=== PATIENT | male | born 1940 | race Two or more races ===

== ENCOUNTER 2016-12-26 10:13 | Inpatient (IN) | payer OTHER, MEDICAID ==
[~2016-12-26] VITALS: Ht 170.2 cm; Wt 84.1 kg
--- NOTE | 2016-12-26 10:13 | NUR ---
c/o Right upper extremities and right hip pain S/P GLF yesterday
--- NOTE | 2016-12-26 11:35 | NUR ---
RAC #20 IV ACCESS. BLOOD SAMPLE COLLECTED SENT TO LAB
--- NOTE | 2016-12-26 11:40 | NUR ---
EKG IN PROGRESS
[2016-12-26 11:47] LABS: BASOPHILS % (AUTO) 0.5 % (0.0-2.0); EOSINOPHILS # (AUTO) 0.1 /CMM (0.0-0.7); EOSINOPHILS % (AUTO) 0.7 % (0.0-6.0); HEMATOCRIT 39 % (39-51); HEMOGLOBIN 12.8 g/dL (13.5-17.5); LYMPHOCYTES # (AUTO) 1.5 /CMM (0.8-4.8); LYMPHOCYTES % (AUTO) 15.4 % (20.0-44.0); MEAN CORPUSCULAR HEMOGLOBIN 30 PG (26.0-33.0); MEAN CORPUSCULAR HGB CONC 33 g/dl (31.0-36.0); MEAN CORPUSCULAR VOLUME 91 fL (80-96); MONOCYTES # (AUTO) 0.8 /CMM (0.1-1.30); MONOCYTES % (AUTO) 8.4 % (2.0-12.0); NEUTROPHILS # (AUTO) 7.4 /CMM (1.8-8.9); PLATELET COUNT (AUTO) 168 /CMM (150-450); RED BLOOD CELL COUNT(AUTO) 4.26 MIL/uL (4.5-6.0); WHITE BLOOD COUNT (AUTO) 9.8 K/uL (4.3-11.0)
[2016-12-26 11:57] LABS: CALCIUM, SERUM 8.4 mg/dL (8.5-10.1); CARBON DIOXIDE 25 mmol/L (21-32); CHLORIDE 104 mmol/L (98-107); CREATININE 1.2 mg/dL (0.6-1.3); GLUCOSE 145 mg/dL (74-106); POTASSIUM 4.6 mmol/L (3.5-5.1); SODIUM SERUM 136 mmol/L (136-145); UREA NITROGEN, BLOOD 34 mg/dL (7-18)
--- NOTE | 2016-12-26 11:59 | NUR ---
PAGED ORTHO -- DENTISTRY TEACHER IS MONIQUE CORNELL
--- NOTE | 2016-12-26 12:00 | NUR ---
GAVE REPORT TO [facility] ROOM [address] [employer] [address]URE[address] BLANCO
[2016-12-26 12:01] LABS: INR 0.92 (0.87-1.13); PROTHROMBIN TIME 9.6 SECS (9.5-12.7)
[2016-12-26] MEDS ORDERED: ACAR25TA2 PO (12:57)
[2016-12-26] MEDS ORDERED: CHOL4PAC2 PO (12:57)
[2016-12-26] MEDS ORDERED: METF500T4 PO (12:57)
[2016-12-26] MEDS ORDERED: EZET10TA PO (12:57)
[2016-12-26] MEDS ORDERED: PIOG30TA2 PO (12:57)
[2016-12-26] MEDS ORDERED: AMLO5TAB2 PO (12:57)
[2016-12-26] MEDS ORDERED: EMPA25TA PO (12:57)
[2016-12-26] MEDS ORDERED: HYDR25TA4 PO (12:57)
[2016-12-26] MEDS ORDERED: ATOR40TA PO (12:57)
[2016-12-26] MEDS ORDERED: FOSI20TA3 PO (12:57)
[2016-12-26] MEDS ORDERED: ACET1TAB12 PO (12:57)
[2016-12-26] MEDS ORDERED: CARV12.52 PO (12:57)
[2016-12-26] MEDS ORDERED: GLIM2TAB2 PO (12:57)
[2016-12-26] MEDS ORDERED: MELO-264 PO (12:57)
--- NOTE | 2016-12-26 13:30 | NUR ---
MS/inspecting machine adjuster New admission from emergency room with right hip fracture. Patient fully admitted, no open wounds seen. Dr Vera called for orders.
--- NOTE | 2016-12-26 14:00 | NUR ---
MS/RN S/B Dr Vera Seen by Dr Vera - orders carried out.
[2016-12-26 16:00] VITALS: BP 149/77
[2016-12-26] MEDS ORDERED: ACETAMINOPHEN W/ CODEINE#3 1 EA TABLET PO PRN (16:30)
[2016-12-26] MEDS ORDERED: ACETAMINOPHEN ES 500 MG TABLET PO PRN (16:30)
[2016-12-26] MEDS ORDERED: ZOLPIDEM TARTRATE 5 MG TABLET PO PRN (16:30)
--- NOTE | 2016-12-26 16:30 | NUR ---
MS/rn private duty Per ortho - patient does not require any surgery to either hip or wrist. - toe touch weight bearing only on left leg - no abduction of left hip - new splint to left wrist (thumb spicker) - follow up with Dr Collier in one week
[2016-12-26] MEDS ORDERED: FOSINOPRIL 20 MG PO SCH (17:30)
[2016-12-26] MEDS ORDERED: JARDIANCE 25 MG PO SCH (17:30)
--- NOTE | 2016-12-26 17:30 | NUR ---
MS/RN Blood sugar Blood sugar at 5p - 131, patient taking oral medications only, no insulin.
[2016-12-26] MEDS: EZETIMIBE 10 MG TABLET PO SCH (18:00)
[2016-12-26] MEDS: HYDROCHLOROTHIAZIDE 25 MG TABLET PO SCH (18:00)
[2016-12-26] MEDS: METFORMIN 500 MG TABLET PO SCH (18:00)
[2016-12-26] MEDS: CARVEDILOL 12.5 MG TABLET PO SCH (18:01)
[2016-12-26] MEDS: AMLODIPINE BESYLATE 5 MG TABLET PO SCH (18:01)
--- NOTE | 2016-12-26 18:44 | NUR ---
MS/RN End note Sat up in bed comfortably, denies any pain. Family at bedside and updated as to plan of care. Will continue to monitor and endorse to security shift manager.
--- NOTE | 2016-12-26 19:30 | NUR ---
RN NOTES RECEIVED PATIENT SITTING UP IN BED. AO X 3, ABLE TO MAKE NEEDS KNOWN. NO ACUTE DISTRESS NOTED. DENIES ANY PAIN AT THIS TIME. IV SITE PATENT, INTACT; FLUSHED. SAFETY REMINDERS GIVEN. ON LOW BED WITH BILATERAL UPPER SIDE RAILS UP. CALL LIGHT WITHIN EASY REACH. WILL CONTINUE TO MONITOR.
[2016-12-26 20:00] VITALS: BP 112/57
[2016-12-26] MEDS ORDERED: CHOLESTYRAMINE/ASPARTAME 4 G/PKT PACKET PO SCH (22:00)
[2016-12-26] MEDS ORDERED: ATORVASTATIN 40 MG TABLET PO SCH (22:00)
--- NOTE | 2016-12-27 06:12 | NUR ---
RN NOTES PATIENT ASLEEP, EASILY AROUSABLE. RESPIRATIONS EVEN. NO SIGNS OF PAIN NOTED. DUE MEDS GIVEN WITH NO ASE NOTED. NEEDS ATTENDED. SAFETY PRECAUTIONS AND COMFORT MEASURES IN PLACE. WILL GIVE REPORT TO DAY SHIFT FOR CONTINUITY OF CARE.
--- NOTE | 2016-12-27 07:30 | NUR ---
RN MS NOTES PT IN BED, AWAKE, ALERT AND ORIENTED, DENIES PAIN, NOT IN DISTRESS, CALL LIGHT WITHIN REACH, ASSISTED WITH ADL'S, NEEDS ATTENDED.
[2016-12-27 08:00] VITALS: BP 113/66
[2016-12-27] MEDS ORDERED: MELOXICAM 7.5 MG TABLET PO SCH (09:00)
[2016-12-27] MEDS: HYDROCHLOROTHIAZIDE 25 MG TABLET PO SCH (09:00)
[2016-12-27] MEDS ORDERED: PIOGLITAZONE HCL 15 MG TABLET PO SCH (09:00)
[2016-12-27] MEDS ORDERED: GLIMEPIRIDE 1 MG TABLET PO SCH (09:00)
[2016-12-27] MEDS: AMLODIPINE BESYLATE 5 MG TABLET PO SCH (09:00)
[2016-12-27] MEDS: EZETIMIBE 10 MG TABLET PO SCH (09:10)
[2016-12-27] MEDS: METFORMIN 500 MG TABLET PO SCH (09:10)
[2016-12-27 09:12] VITALS: BP 113/66
[2016-12-27] MEDS: CARVEDILOL 12.5 MG TABLET PO SCH (09:12)
--- NOTE | 2016-12-27 13:00 | NUR ---
RN MS NOTES PT IN BED, AWAKE, ALERT AND ORIENTED, NO COMPLAINT OF PAIN AT THIS TIME, NOT IN DISTRESS, FAMILY AT BEDSIDE, PT SEEN BY DR. BLANCO, DISCHARGE ORDER GIVEN, VERBALIZED UNDERSTANDING, NEEDS ATTENDED.
--- NOTE | 2016-12-27 14:30 | NUR ---
RN MS NOTES PT SEEN BY PHYSICAL THERAPIST, PT EDUCATION PROVIDED, WALKER DELIVERED BY [facility], PT EDUCATED WITH WALKER USE, RIGHT WRIST SPLINT ORDERED FROM [facility] BUT THEY DO NOT HAVE THE THUMB SPICKER SPLINT, PT WILL FOLLOW UP WITH DR. DURON IN 1 WEEK, KARMEN DELGADO SPOKE WITH PT AND FAMILY, PT DOES NOT WANT TO BE PLACED IN SNF, BELONGINGS ACCOUNTED FOR, DISCHARGE AND MEDICATION INSTRUCTIONS PROVIDED TO PT AND FAMILY, VERBALIZED UNDERSTANDING, LEFT VIA WHEELCHAIR, ASSISTED BY FIRE MARSHAL REFINERY TO HOSPITAL LOBBY, LEFT WITH FAMILY IN STABLE CONDITION.
== END 2016-12-27 14:30 | disposition home or self-care (01) | DRG 536 ==
LOC: ER 10:16 → MEDSG2 12:23
PROVIDERS: ADMIT Internal Medicine; ATTEND Internal Medicine
DX: S72.111A Displaced fracture of greater trochanter of right femur, initial encounter for closed fracture (principal); E11.9 Type 2 diabetes mellitus without complications; S62.001A Unspecified fracture of navicular [scaphoid] bone of right wrist, initial encounter for closed fracture; E78.5 Hyperlipidemia, unspecified; I10 Essential (primary) hypertension; Z79.4 Long term (current) use of insulin; Y93.9 Activity, unspecified; Y92.009 Unspecified place in unspecified non-institutional (private) residence as the place of occurrence of the external cause; Z87.311 Personal history of (healed) other pathological fracture; Z91.81 History of falling
CPT/HCPCS: 36415; 71010-TC; 73080-TC; 73110; 73502; 73700-TC; 80048-TC; 82962-TC; 85025-TC; 85730-TC; 87081-TC; A4606; Z7610

== ENCOUNTER 2017-01-10 16:38 | Emergency (ER) | payer OTHER, MEDICAID ==
[~2017-01-10] VITALS: Ht 167.6 cm; Wt 85.3 kg
[~2017-01-10 16:38] MED LIST: ACAR25TA2 PO; ACET1TAB12 PO; AMLO5TAB2 PO; ATOR40TA PO; CARV12.52 PO; CHOL4PAC2 PO; EMPA25TA PO; EZET10TA PO; FOSI20TA3 PO; GLIM2TAB2 PO; HYDR25TA4 PO; MELO-264 PO; METF500T4 PO; PIOG30TA2 PO
[2017-01-10 16:40] VITALS: BP 140/79
--- NOTE | 2017-01-10 16:40 | NUR ---
TO ED FOR R L E SWELLING X [address] DURON
--- NOTE | 2017-01-10 16:53 | NUR ---
DR SHAH AT BEDSIDE FOR EVAL
--- NOTE | 2017-01-10 17:28 | NUR ---
AUTOMOTIVE VEHICLE INSPECTOR AT BEDSIDE
== END 2017-01-10 17:55 | disposition home or self-care (01) ==
LOC: ER 16:39
DX: R60.9 Edema, unspecified (principal); E11.9 Type 2 diabetes mellitus without complications; I10 Essential (primary) hypertension; E78.00 Pure hypercholesterolemia, unspecified; M19.90 Unspecified osteoarthritis, unspecified site
CPT/HCPCS: 93970-TC; A4606; Z7610

== ENCOUNTER 2023-02-04 10:11 | Emergency (ER) | payer MEDICARE, OTHER ==
[~2023-02-04] VITALS: Ht 162.6 cm; Wt 73.5 kg
[~2023-02-04 10:11] MED LIST changes: +AMLO-212 PO; -AMLO5TAB2 PO; -EZET10TA PO; +EZET10TA16 PO; +FOSI20TA PO; -FOSI20TA3 PO; -GLIM2TAB2 PO; +GLIM2TAB31 PO; +MELO-107 PO; -MELO-264 PO; +METF-440 PO; -METF500T4 PO; +PIOG30TA10 PO; -PIOG30TA2 PO
[2023-02-04 12:21] VITALS: BP 140/69; TEMP 97.6; O2SAT 96
== END 2023-02-04 12:22 | disposition home or self-care (01) ==
LOC: ER 10:15
DX: I87.8 Other specified disorders of veins (principal); I10 Essential (primary) hypertension; E78.00 Pure hypercholesterolemia, unspecified; E11.9 Type 2 diabetes mellitus without complications; Z79.899 Other long term (current) drug therapy
CPT/HCPCS: 93970-TC

== ENCOUNTER 2023-08-06 11:00 | Outpatient (CLI) | payer MEDICARE, OTHER ==
[~2023-08-06 11:00] MED LIST changes: +TRIAMCINOLONE ACETONIDE 0.1% CR 15 GM TUBE TP ONE
== END 2023-08-06 23:59 | disposition home or self-care (01) ==
LOC: WOU 11:00
PROVIDERS: ATTEND Surgery Vascular Surgery
DX: I87.2 Venous insufficiency (chronic) (peripheral) (principal); R60.9 Edema, unspecified
CPT/HCPCS: 93970-TC

== ENCOUNTER 2023-09-03 09:31 | Emergency (ER) | payer MEDICARE, OTHER ==
[~2023-09-03] VITALS: Ht 160 cm; Wt 78.5 kg
[~2023-09-03 09:31] MED LIST changes: -TRIAMCINOLONE ACETONIDE 0.1% CR 15 GM TUBE TP ONE
[2023-09-03] MEDS ORDERED: IOHEXOL-300 100 ML VIAL IV ONE (14:34)
[2023-09-03] MEDS ORDERED: IV NS 0.9% 250 ML IV ONE (14:35)
[2023-09-03 17:19] VITALS: BP 120/58; TEMP 98.4; O2SAT 99
== END 2023-09-03 17:20 | disposition home or self-care (01) ==
LOC: ER 09:48
DX: R60.0 Localized edema (principal); I10 Essential (primary) hypertension; E11.9 Type 2 diabetes mellitus without complications; M19.90 Unspecified osteoarthritis, unspecified site; E78.00 Pure hypercholesterolemia, unspecified
CPT/HCPCS: 99285; 74177; 93970; 82565; 36415; J7050; Q9967

== ENCOUNTER 2025-02-16 09:59 | Outpatient (CLI) | payer MEDICARE, OTHER ==
[2025-02-16] MEDS ORDERED: COLLAGENASE 5 GM TUBE UD TP ONE (11:08)
== END 2025-02-16 23:59 | disposition home health service (06) ==
LOC: WOU 09:59
PROVIDERS: ATTEND Surgery Vascular Surgery
DX: I87.2 Venous insufficiency (chronic) (peripheral) (principal); I10 Essential (primary) hypertension; E11.9 Type 2 diabetes mellitus without complications
CPT/HCPCS: 29580; A6454

== ENCOUNTER 2025-03-07 09:07 | Outpatient (CLI) | payer MEDICARE, OTHER ==
[2025-03-07] MEDS ORDERED: TRIAMCINOLONE ACETONIDE 0.1% CR 15 GM TUBE TP ONE (09:37)
[2025-03-07] MEDS ORDERED: SILVER SULFADIAZINE CREAM 25 GM TUBE ONE (09:38)
== END 2025-03-07 23:59 | disposition home health service (06) ==
LOC: WOU 09:07
PROVIDERS: ATTEND Student in an Organized Health Care Education/Training Program
DX: I87.2 Venous insufficiency (chronic) (peripheral) (principal); E11.40 Type 2 diabetes mellitus with diabetic neuropathy, unspecified; Z79.4 Long term (current) use of insulin; Z79.84 Long term (current) use of oral hypoglycemic drugs; R60.0 Localized edema; L85.3 Xerosis cutis; L30.9 Dermatitis, unspecified
CPT/HCPCS: 29581; 11721; A6454